=== PATIENT | male | born 1955 | race Caucasian/White ===

== ENCOUNTER 2018-12-30 20:41 | Emergency (ER) | payer MEDICARE, MEDICAID ==
[~2018-12-30] VITALS: Ht 170.2 cm; Wt 90.7 kg
[~2018-12-30 20:41] MED LIST: ASPI-605 PO; ATOR10TA PO; CARV3.122 PO; GABA-534 PO; LISI-607 PO; METF-440 PO; NAPR-1164 PO; PANT40TA4 PO
--- NOTE | 2018-12-30 21:15 | NUR ---
PT BIBSELF FOR S/I, "HEARING VOICES"; PT AAOX4, PT TO BED 6, SI PRECAUTIONS STARTED, ALL BELOGINGS IN UTILITY ROOM, CALLED HOUSE SUP FOR SITTER, VSS, NAD NOTED, PENDING ER PROVIDER HUGO
[2018-12-30 21:32] LABS: BASOPHILS # (AUTO) 0.1 /CMM (0.0-0.2); BASOPHILS % (AUTO) 0.8 % (0.0-2.0); EOSINOPHILS % (AUTO) 0.7 % (0.0-6.0); HEMATOCRIT 36 % (39-51); HEMOGLOBIN 11.8 g/dL (13.5-17.5); LYMPHOCYTES # (AUTO) 1.9 /CMM (0.8-4.8); LYMPHOCYTES % (AUTO) 26.9 % (20.0-44.0); MEAN CORPUSCULAR HGB CONC 33 g/dl (31.0-36.0); MEAN CORPUSCULAR VOLUME 88 fL (80-96); MONOCYTES # (AUTO) 0.5 /CMM (0.1-1.30); MONOCYTES % (AUTO) 7.3 % (2.0-12.0); NEUTROPHILS # (AUTO) 4.6 /CMM (1.8-8.9); NEUTROPHILS % (AUTO) 64.3 % (43.0-81.0); PLATELET COUNT (AUTO) 234 /CMM (150-450); RED BLOOD CELL COUNT(AUTO) 4.04 MIL/uL (4.5-6.0); WHITE BLOOD COUNT (AUTO) 7.1 K/uL (4.3-11.0)
[2018-12-30 21:39] LABS: APPEARANCE,URINE Clear (CLEAR); BILIRUBIN,URINE Negative (NEGATIVE); BLOOD, URINE Negative Ery/uL (NEGATIVE); COLOR,URINE Yellow (YELLOW); KETONES,URINE 15 (NEGATIVE); LEUKOCYTE ESTERASE ,URINE Negative (NEGATIVE); NITRITE, URINE Negative (NEGATIVE); PH,URINE 5.5 (5.0-8.0); PROTEIN,URINE Negative (NEGATIVE); UGLUCOSE Negative (NEGATIVE); UROBILINOGEN,URINE 0.2 EU/dL (0.2)
[2018-12-30 21:41] LABS: CALCIUM, SERUM 9.6 mg/dL (8.5-10.1); CARBON DIOXIDE 30 mmol/L (21-32); CHLORIDE 105 mmol/L (98-107); CREATININE 0.8 mg/dL (0.6-1.3); GLUCOSE 130 mg/dL (74-106); POTASSIUM 4.1 mmol/L (3.5-5.1); SODIUM SERUM 143 mmol/L (136-145); UREA NITROGEN, BLOOD 30 mg/dL (7-18)
[2018-12-30 21:46] LABS: ALANINE AMINOTRANSFERASE 16 U/L (12-78); ALBUMIN 3.7 g/dL (3.4-5.0); ALCOHOL, BLOOD < 3 mg/dL (0-0); ALKALINE PHOSPHATASE 79 U/L (46-116); ASPARTATE AMINOTRANSFERASE 9 U/L (15-37); BILIRUBIN,TOTAL 0.2 mg/dL (0.2-1.0); SALICYLATE 1.4 mg/dL (2.8-20.0); TOTAL PROTEIN, SERUM 7.7 g/dL (6.4-8.2)
[2018-12-30 21:47] LABS: ACETAMINOPHEN 0 ug/ml (10-30)
[2018-12-30 22:02] LABS: BACTERIA,URINE Rare /HPF (None Seen); RBC,URINE 0-2 /HPF (0-2); SQUAMOUS EPITHELIAL CELL,UR Few /HPF (None Seen); WBC,URINE 0-2 /HPF (0-3)
[2018-12-30] MEDS: IV NS 0.9% 1,000 ML BAG IV ONE (22:30)
--- NOTE | 2018-12-30 22:54 | NUR ---
CALLED ART FOR PSYCH EVAL, ETA WITHIN THE HOUR
--- NOTE | 2018-12-31 00:07 | NUR ---
ART AT BEDSIDE
--- NOTE | 2018-12-31 00:25 | NUR ---
REPORT REC'D FROM ORALIA [place] FOR EDDA.
--- NOTE | 2018-12-31 00:52 | NUR ---
PT WAS SEEN BY KELSI MEJIA LCSW. PT DENIES SI AT THIS TIME AND WANTS TO WAIT IN THE LOBBY FOR SOLUTION ADVISOR. KELSI MEJIA LCSW DID THE HOMELESS WAIVER WITH THE PT AND IT WAS SIGNED BY PT. PT REC'D A HOMELESS PACKET. VSS. PT AMBULATED OUT WITH A CANE.
[2018-12-31 01:07] VITALS: BP 126/94
== END 2018-12-31 01:09 | disposition home or self-care (01) ==
LOC: ER 20:41
DX: R45.851 Suicidal ideations (principal); I10 Essential (primary) hypertension; F17.200 Nicotine dependence, unspecified, uncomplicated; Z88.8 Allergy status to other drugs, medicaments and biological substances; Z79.899 Other long term (current) drug therapy; Z79.84 Long term (current) use of oral hypoglycemic drugs; Z79.82 Long term (current) use of aspirin
CPT/HCPCS: 36415; 80048; 80076; 80305; 80307; 80329; 81001; 85025; 99284; G0480; 81000-TC; J7030

== ENCOUNTER 2021-09-11 11:14 | Inpatient (IN) | payer MEDICARE, OTHER ==
[~2021-09-11] VITALS: Ht 167.6 cm; Wt 107.5 kg
[~2021-09-11 11:14] MED LIST changes: -LISI-607 PO; +LISI-768 PO; -PANT40TA4 PO; +PANT40TA49 PO
[2021-09-11] MEDS ORDERED: ALBU8.5H8 IH (11:43)
[2021-09-11] MEDS ORDERED: BUDE10.2 IH (11:43)
[2021-09-11] MEDS ORDERED: TAMS-12 PO (11:43)
[2021-09-11] MEDS ORDERED: QUET50TA PO (11:43)
[2021-09-11] MEDS ORDERED: HALO5TAB PO (11:43)
[2021-09-11] MEDS ORDERED: HYDR-500 PO (11:43)
[2021-09-11] MEDS ORDERED: DIVA-78 PO (11:43)
[2021-09-11] MEDS ORDERED: LORA2VIA11 IM (11:43)
[2021-09-11] MEDS ORDERED: FERR325T23 PO (11:43)
[2021-09-11] MEDS ORDERED: TRAM50TA2 PO (11:43)
[2021-09-11] MEDS ORDERED: DULO30CA2 PO (11:43)
[2021-09-11] MEDS ORDERED: IBUP-1955 PO (11:43)
[2021-09-11] MEDS ORDERED: PSYL3.4P6 PO (11:43)
[2021-09-11] MEDS ORDERED: SITA100T PO (11:43)
[2021-09-11] MEDS ORDERED: ASPI-1169 PO (11:43)
[2021-09-11] MEDS ORDERED: MELA5TAB PO (11:43)
[2021-09-11] MEDS ORDERED: TRAZ-182 PO (11:43)
[2021-09-11] MEDS ORDERED: OLAN10TA3 PO (11:43)
[2021-09-11] MEDS ORDERED: QUET200T PO (11:43)
[2021-09-11 12:00] VITALS: BP 126/64
[2021-09-11] MEDS ORDERED: MAG HYDROX/AL HYDROX/SIMETH 30 ML UDC PO PRN (12:00)
[2021-09-11] MEDS ORDERED: MAGNESIUM HYDROXIDE 30 ML UDC PO PRN (12:00)
--- NOTE | 2021-09-11 12:00 | NUR ---
GPS/RN RECEIVED PT DIRECT ADMIT FROM [facility] ORIGINALLY FROM AND CARE ON 5150 DTO/DTS FACE TO FACE ASSESSMENT NO SI OR HI AT THE TIME OF ADMISSION REPORTED. ADMITTING ORDERS RECEIVED AND CARRIED OUT. PROPERTY CHECKED FOR CONTRABAND. PT IS AMBULATORY BUT REQUESTED WHEEL CHAIR TO MOVE AROUND.
[2021-09-11] MEDS: LORAZEPAM 0.5 MG TABLET PO PRN (13:23)
--- NOTE | 2021-09-11 14:08 | NUR ---
RN-CO: NOTIFIED DR COOPER AND DR MESSER REGARDING THIS NEW ADMIT PATIENT. PT WAS GIVEN PATIENT'S RIGHTS BOOKLET AND DISCUSSED IT TO HIM. HE VERBALIZED UNDERSTANDING. HE WAS ALSO ORIENTED TO THE UNIT RULES AND REGULATIONS. ALL BELONGINGS NO CONTRABAND WAS SCREENED AND LISTED.
[2021-09-11] MEDS ORDERED: ACETAMINOPHEN 325 MG TABLET PO PRN (14:30)
[2021-09-11] MEDS ORDERED: DEXTROSE 50%-WATER 50 ML DISP.SYRIN IV PRN (14:30)
[2021-09-11] MEDS: BUDESONIDE RESPULE INH 0.5 MG/2 ML AMPUL.NEB NEB SCH (15:00)
[2021-09-11] MEDS ORDERED: BUDESONIDE RESPULE INH 0.5 MG/2 ML AMPUL.NEB IH SCH (15:00)
[2021-09-11] MEDS ORDERED: ALBUTEROL FS 2.5 MG/3 ML VIAL.NEB NEB PRN (15:00)
[2021-09-11 16:00] VITALS: BP 144/90
[2021-09-11] MEDS ORDERED: BLOOD SUGAR DIAGNOSTIC 1 EACH STRIP IN ONE (16:30)
[2021-09-11] MEDS ORDERED: Medication Not On Formulary EA (Budesonide/Formoterol Fumarate (Symbicort 160-4.5 Mcg In IH SCH (17:00)
[2021-09-11] MEDS: METFORMIN 500 MG TABLET PO SCH ×3 (17:00→17:57)
[2021-09-11] MEDS: TRAMADOL HCL 50 MG TABLET PO SCH ×3 (17:00→17:57)
[2021-09-11] MEDS: CARVEDILOL 6.25 MG TABLET PO SCH ×3 (17:00→17:58)
[2021-09-11] MEDS: GABAPENTIN 300 MG CAPSULE PO SCH ×3 (17:00→17:57)
[2021-09-11] MEDS: TAMSULOSIN 0.4 MG CAP.SR.24H PO SCH ×3 (17:14→17:57)
[2021-09-11] MEDS: BLOOD SUGAR DIAGNOSTIC 1 EACH STRIP IN SCH ×2 (17:25→21:41)
--- NOTE | 2021-09-11 17:27 | NUR ---
GPS/RN PT REFUSED MEDS OFFERED X3. PT IS RUDE AND BELLIGERENT. PT REFUSED ACCUCHECK WELL. MEDS WERE OFFERED BY QUALITY REP OF THE NOTE AND LUZ RN/MS
[2021-09-11] MEDS ORDERED: DIVALPROEX SODIUM 500 MG TABLET.DR PO SCH (18:00)
[2021-09-11] MEDS ORDERED: Medication Not On Formulary EA (Quetiapine Fumarate (Seroquel) 50 MG) PO SCH (18:00)
[2021-09-11] MEDS ORDERED: DULOXETINE HCL 30 MG CAPSULE.DR PO SCH (18:00)
--- NOTE | 2021-09-11 18:26 | NUR ---
GPS RN NOTE SPOKE WITH ASHTYN FROM PHARMACY WHO STATED PATIENT'S MEDICATION, JANUVIA, WHICH NORMALLY TAKEN AT [facility] ([facility]), IS NOT AVAILABLE AT THE HOSPITAL AND WILL MOST LIKELY BE HELD. WILL ENDORSE TO COLORED LIQUID PLASTIC APPLIER.
[2021-09-11 20:42] VITALS: BP 150/90
[2021-09-11] MEDS: ATORVASTATIN 10 MG TABLET PO SCH (21:35)
[2021-09-11] MEDS: INSULIN REGULAR, HUMAN 100 UNIT/ML 3 ML VIAL SQ PRN (21:41)
[2021-09-11] MEDS: TRAZODONE 50 MG TABLET PO SCH (22:00)
[2021-09-11] MEDS ORDERED: Medication Not On Formulary EA (Melatonin 10 MG) PO SCH (22:00)
[2021-09-12] MEDS: TEMAZEPAM 7.5 MG CAPSULE PO PRN (00:39)
--- NOTE | 2021-09-12 00:40 | NUR ---
Pt c/o insomnia. Least restrictive measures ineffective. Restoril 7.5 mg po prn given as ordered. Will continue to monitor.
--- NOTE | 2021-09-12 01:40 | NUR ---
Post 1 hr Restoril ineffective. Pt still awake and restless. Will continue to monitor.
[2021-09-12] MEDS: LORAZEPAM 0.5 MG TABLET PO PRN ×2 (02:22→12:53)
--- NOTE | 2021-09-12 02:22 | NUR ---
Pt anxious and agitated. Unable to sleep. Least restrictive measures ineffective. Vital signs WNL. Ativan 0.5 mg po prn given as ordered. Will continue to monitor.
--- NOTE | 2021-09-12 03:22 | NUR ---
Post 1 hr Ativan effective. Pt less anxious and agitated but still awake. Will continue to monitor. Frequent visual check done for safety. Will endorse to next shift.
[2021-09-12] MEDS: ALBUTEROL FS 2.5 MG/3 ML VIAL.NEB NEB SCH ×4 (03:58→19:30)
--- NOTE | 2021-09-12 04:00 | NUR ---
Pt asleep easy to arouse. Frequent visual check done for safety. Will endorse to next shift.
[2021-09-12 08:00] VITALS: BP 143/96
[2021-09-12] MEDS: BUDESONIDE RESPULE INH 0.5 MG/2 ML AMPUL.NEB NEB SCH ×2 (08:01→15:10)
[2021-09-12] MEDS: BLOOD SUGAR DIAGNOSTIC 1 EACH STRIP IN SCH ×4 (08:19→21:27)
[2021-09-12] MEDS: GABAPENTIN 300 MG CAPSULE PO SCH ×3 (08:20→17:24)
[2021-09-12] MEDS: METFORMIN 500 MG TABLET PO SCH ×2 (08:21→17:24)
[2021-09-12] MEDS: FERROUS SULFATE (325 MG) 325 MG/TAB TABLET PO SCH (08:21)
[2021-09-12] MEDS: PANTOPRAZOLE 40 MG TABLET.DR PO SCH (08:21)
[2021-09-12] MEDS: ASPIRIN 81 MG TAB.CHEW PO SCH (08:21)
[2021-09-12] MEDS: TRAMADOL HCL 50 MG TABLET PO SCH ×2 (08:21→17:24)
[2021-09-12] MEDS: CARVEDILOL 6.25 MG TABLET PO SCH ×2 (08:22→17:25)
[2021-09-12] MEDS ORDERED: Medication Not On Formulary EA (Sitagliptin Phosphate (Januvia) 100 MG) PO SCH (09:00)
[2021-09-12 11:16] LABS: BASOPHILS % (AUTO) 0.2 % (0.0-2.0); EOSINOPHILS % (AUTO) 1.6 % (0.0-6.0); HEMATOCRIT 38 % (39-51); HEMOGLOBIN 12.5 g/dL (13.5-17.5); LYMPHOCYTES # (AUTO) 1.8 K/uL (0.8-4.8); LYMPHOCYTES % (AUTO) 25.6 % (20.0-44.0); MEAN CORPUSCULAR HGB CONC 33 g/dl (31.0-36.0); MEAN CORPUSCULAR VOLUME 91 fL (80-96); MONOCYTES # (AUTO) 0.7 K/uL (0.1-1.30); MONOCYTES % (AUTO) 10.2 % (2.0-12.0); NEUTROPHILS # (AUTO) 4.3 K/uL (1.8-8.9); NEUTROPHILS % (AUTO) 62.4 % (43.0-81.0); PLATELET COUNT (AUTO) 263 K/uL (150-450); RED BLOOD CELL COUNT(AUTO) 4.19 MIL/uL (4.5-6.0); WHITE BLOOD COUNT (AUTO) 6.9 K/uL (4.3-11.0)
[2021-09-12 11:33] LABS: ALBUMIN 3.7 g/dL (3.4-5.0); BILIRUBIN,TOTAL 0.2 mg/dL (0.2-1.0); CALCIUM, SERUM 9.4 mg/dL (8.5-10.1); CREATININE 0.8 mg/dL (0.6-1.3); MAGNESIUM 1.9 mg/dL (1.8-2.4); PHOSPHORUS 4.2 mg/dL (2.5-4.9); POTASSIUM 4.3 mmol/L (3.5-5.1); TOTAL PROTEIN, SERUM 7.4 g/dL (6.4-8.2)
[2021-09-12] MEDS: ACETAMINOPHEN 325 MG TABLET PO PRN (12:18)
[2021-09-12] MEDS: HALOPERIDOL 5 MG TABLET PO SCH ×2 (13:25→17:24)
[2021-09-12] MEDS: DIVALPROEX SODIUM 500 MG TABLET.DR PO SCH ×2 (13:25→21:16)
[2021-09-12] MEDS ORDERED: HALOPERIDOL LACTATE INJ 5 MG/ML VIAL IM STA (13:47)
[2021-09-12] MEDS ORDERED: BENZTROPINE MESYLATE (2MG/2ML) 2 MG/2 ML AMPUL IM STA (13:47)
[2021-09-12] MEDS ORDERED: LORAZEPAM INJ 2 MG/ML VIAL IM STA (13:47)
--- NOTE | 2021-09-12 14:24 | NUR ---
GPS RN NOTES PATIENT WALKING AGITATED, SAID WANT TO BANG HIS HEAD ON THE WALL. REQUESTING VOLUNTARILY IM INJECTION. MD CONTACTED BY CHARGE NURSE AND ORDER RECEIVED AND CARRIED OUT.
--- NOTE | 2021-09-12 15:12 | NUR ---
Conservator: The pt. stated that he has a conservator through public guardian's office,Marcelina Mcgarry [phone]. SW called and left a voicemail to establish communication and discuss DC planning. SW will follow up as needed.
--- NOTE | 2021-09-12 15:12 | NUR ---
Initial Discharge plan: The pt. comes from [facility] [[address] [facility] [address]; ]. NICO called Marcelina and left a voicemail to establish communication and discuss DC planning. NICO will follow up as needed. NICO will collaborate with pt., conservator & psychiatrist to ensure a safe & proper discharge planning. Addendum: 09/12/21 at 1517 by SALBADOR WALSH Pt. stated he is willing to return to [facility] [[address] [facility] [address]; ] if no alternate placement is found. NICO called [facility] admission's dept. and left message if pt. is able to return once stable. NICO will follow up.
--- NOTE | 2021-09-12 15:17 | NUR ---
SW Admit Source: The pt. is a 66 year old male on a 5150 hold for DTS/DTO. The pt. comes from [facility] [[address] [place] [address]; ] after making suicidal statements and wanting to hurt staff at the facility, per hold. Per hold, pt. stated he has a plan to kill himself at facility by cutting his wrists with glass. Pt. is open to returning to [facility] or alternate placement. SW will establish communication with Conservator & plan a safe discharge.
[2021-09-12 16:00] VITALS: BP 128/87
[2021-09-12] MEDS: TAMSULOSIN 0.4 MG CAP.SR.24H PO SCH (18:51)
--- NOTE | 2021-09-12 19:26 | NUR ---
GPS RN NOTES PT RECEIVED IN MED ASLEEP EASILY WOKEN UP. PT WITH NO RESPIRATORY DISTRESS NOTED. NO PAIN REPORTED OR NOT4ED AT THIS TIME. A/O X3 ANXIOUS. ALL DUE MEDS WILL ME ADMINISTERED ORDERED. PT WILL BE MONITORED WITH HELP OF NURSING STAFF.
[2021-09-12 20:00] VITALS: BP 134/73
[2021-09-12] MEDS: ATORVASTATIN 10 MG TABLET PO SCH (21:16)
[2021-09-12] MEDS: INSULIN REGULAR, HUMAN 100 UNIT/ML 3 ML VIAL SQ PRN (21:28)
[2021-09-12] MEDS: TRAZODONE 50 MG TABLET PO SCH (22:01)
[2021-09-13] MEDS: ALBUTEROL FS 2.5 MG/3 ML VIAL.NEB NEB SCH ×4 (01:30→19:30)
[2021-09-13] MEDS: ACETAMINOPHEN 325 MG TABLET PO PRN (01:53)
--- NOTE | 2021-09-13 02:00 | NUR ---
GPS RN NOTES PRN TYLENOL GIVEN FOR MILD PAIN TOLERATED WELL. WILL CONTINUE TO MONITOR.
[2021-09-13] MEDS: LORAZEPAM 0.5 MG TABLET PO PRN (03:34)
--- NOTE | 2021-09-13 03:38 | NUR ---
GPS RN NOTES PRN ATIVAN GIVEN FOR ANXIETY PT PASSING BACK AN FORTH SAYING HE IS VERY ANXIOUS. TOLERATED WELL. WILL CONTINUE TO MONITOR.
[2021-09-13] MEDS: BUDESONIDE RESPULE INH 0.5 MG/2 ML AMPUL.NEB NEB SCH ×2 (07:05→14:18)
[2021-09-13 08:00] VITALS: BP 106/64
[2021-09-13] MEDS: BLOOD SUGAR DIAGNOSTIC 1 EACH STRIP IN SCH ×4 (08:08→21:24)
[2021-09-13] MEDS: ASPIRIN 81 MG TAB.CHEW PO SCH (08:09)
[2021-09-13] MEDS: HALOPERIDOL 5 MG TABLET PO SCH ×3 (08:09→17:16)
[2021-09-13] MEDS: PANTOPRAZOLE 40 MG TABLET.DR PO SCH (08:09)
[2021-09-13] MEDS: DIVALPROEX SODIUM 500 MG TABLET.DR PO SCH ×2 (08:09→21:21)
[2021-09-13] MEDS: METFORMIN 500 MG TABLET PO SCH ×2 (08:10→17:16)
[2021-09-13] MEDS: TRAMADOL HCL 50 MG TABLET PO SCH ×2 (08:10→17:17)
[2021-09-13] MEDS: GABAPENTIN 300 MG CAPSULE PO SCH ×3 (08:10→17:15)
[2021-09-13] MEDS: CARVEDILOL 6.25 MG TABLET PO SCH ×2 (08:10→17:15)
[2021-09-13] MEDS: FERROUS SULFATE (325 MG) 325 MG/TAB TABLET PO SCH (08:10)
--- NOTE | 2021-09-13 08:55 | NUR ---
Conservator: NICO contacted public guardian's office,Marcelina Mcgarry [phone]. NICO called and left a voicemail to establish communication and discuss DC planning. NICO was transferred to officer of the paras Myles who stated that Marcelina will be back in the office 09/14. She stated that pt is LPS conserved.
--- NOTE | 2021-09-13 09:10 | NUR ---
Conservator: NICO contacted public guardian's office,Marcelina Moralesiz [phone]. NICO spoke with officer of the paras Myles who sent the conservatorship documents. SW placed in the chart.
[2021-09-13] MEDS ORDERED: HALOPERIDOL LACTATE INJ 5 MG/ML VIAL IM STA (13:42)
[2021-09-13] MEDS ORDERED: LORAZEPAM INJ 2 MG/ML VIAL IM STA (13:42)
[2021-09-13] MEDS ORDERED: BENZTROPINE MESYLATE (2MG/2ML) 2 MG/2 ML AMPUL IM STA (13:42)
--- NOTE | 2021-09-13 13:56 | NUR ---
GPS RN NOTE: PATIENT ANXIOUS EXTREMELY AGITATED ANGRY MOOD ATIVAN OFFERED BUT PATIENT REFUSED PO ATIVAN 0.5 MG PRN PO,INSTEAD PATIENT REQUEST IM MEDICATIONS DR COOPER WAS NOTIFIED WITH ORDERS. ATIVAN 0.5 MG PO PRN I TAB WAS WAISTED WITH MARIE MADRIGAL WITNESS. PHARMACY NOTIFIED.
--- NOTE | 2021-09-13 14:02 | NUR ---
Patient agitated and he wants to bang his head to the wall , notified with new order Ativan 2mg IM ,Haldol 5mg IM,Cogentin 1mg IM .Patient voluntarily accept injection ,no physical hold ,
[2021-09-13 16:00] VITALS: BP 117/76
[2021-09-13] MEDS ORDERED: HALOPERIDOL 1 MG TABLET PO SCH (17:00)
[2021-09-13] MEDS: TAMSULOSIN 0.4 MG CAP.SR.24H PO SCH (17:14)
[2021-09-13 20:00] VITALS: BP 123/84
[2021-09-13] MEDS: ATORVASTATIN 10 MG TABLET PO SCH (21:23)
[2021-09-13] MEDS ORDERED: QUETIAPINE FUMARATE 25 MG TABLET PO SCH (22:00)
[2021-09-13] MEDS ORDERED: TRAZODONE 50 MG TABLET PO SCH (22:00)
[2021-09-14] MEDS: ALBUTEROL FS 2.5 MG/3 ML VIAL.NEB NEB SCH ×4 (01:30→19:30)
[2021-09-14] MEDS: TEMAZEPAM 7.5 MG CAPSULE PO PRN ×2 (01:51→21:40)
--- NOTE | 2021-09-14 02:34 | NUR ---
GPS RN NOTES PATIENT RESTLESS DESPITE ROUTINE AND PRN MEDS; PATIENT COMPLIANT WITH MEDICATION REGIME; PATIENT FRUSTRATED AND CANNOT SLEEP, TRIES TO GET OUT OF BED CONSTANTLY TO USE RESTROOM; HITTING HIMSELF IN THE HEAD WITH HIS HANDS WHILE LAYING IN BED; CHANGING PATIENT LINEN DUE TO PATIENT PEEING IN BED; PATIENT OFFERED URINAL PRIOR TO INCIDENT BUT REFUSING TO USE URINAL AND ADAMANT ON USING RESTROOM; PER PREVIOUS SHIFT, PATIENT HAS MANIPULATIVE AND ATTENTION SEEKING BEHAVIOR; PATIENT HAS WALKED TO RESTROOM MORE THAN 5X WITHIN THE HOUR; BOUNDARIES SET, PATIENT RE-DIRECTED AND RE-EDUCATED ON COMPLIANCE WITH TREATMENT PLAN TO PREVENT POSSIBLE FALL; PATIENT NEEDY AND DEMANDING THROUGHOUT SHIFT; CHARGE NURSE AWARE AND AGREED TO FOR PATIENT TO HAVE DIAPER ON TO PREVENT PATIENT FALL; PATIENT IS FALL RISK; BED ALARM ON; WILL CONT TO MONITOR
--- NOTE | 2021-09-14 05:14 | NUR ---
GPS RN NOTES PATIENT YELLING AND CURSING AT STAFF, PATIENT CONSTANTLY ATTEMPTING TO GET OUT OF BED; PATIENT REMOVING GOWN THROUGHOUT SHIFT; PATIENT DOES NOT WANT TO LISTEN TO DIRECTION; PATIENT CONFUSED, CRYING IN BED, STATED, "HE COULD NOT HANDLE THIS AND WOULD LIKE TO LAY DOWN IN BED", CHARGE NURSE AWARE OF SITUATION; SAFETY PRECAUTIONS IMPLEMENTED, SIDE RAILS X2 UP, BED LOCKED IN LOW POSITION; BED ALARM ON; WILL CONT TO MONITOR
[2021-09-14] MEDS: BUDESONIDE RESPULE INH 0.5 MG/2 ML AMPUL.NEB NEB SCH ×2 (07:05→15:00)
[2021-09-14 08:00] VITALS: BP 125/80
[2021-09-14] MEDS: PANTOPRAZOLE 40 MG TABLET.DR PO SCH (08:08)
[2021-09-14] MEDS: BLOOD SUGAR DIAGNOSTIC 1 EACH STRIP IN SCH ×4 (08:09→21:45)
[2021-09-14] MEDS: DIVALPROEX SODIUM 500 MG TABLET.DR PO SCH ×2 (08:33→21:39)
[2021-09-14] MEDS: HALOPERIDOL 5 MG TABLET PO SCH ×3 (08:33→16:14)
[2021-09-14] MEDS: METFORMIN 500 MG TABLET PO SCH ×2 (08:46→16:18)
[2021-09-14] MEDS: FERROUS SULFATE (325 MG) 325 MG/TAB TABLET PO SCH (08:46)
[2021-09-14] MEDS: GABAPENTIN 300 MG CAPSULE PO SCH ×3 (08:46→16:14)
[2021-09-14] MEDS: TRAMADOL HCL 50 MG TABLET PO SCH ×2 (08:47→16:15)
[2021-09-14] MEDS: ASPIRIN 81 MG TAB.CHEW PO SCH (08:47)
[2021-09-14] MEDS: CARVEDILOL 6.25 MG TABLET PO SCH ×2 (08:48→16:15)
--- NOTE | 2021-09-14 10:47 | NUR ---
Conservator: NICO contacted public guardian's office,Marcelina Moralesiz [phone] and was unavailable. NICO spoke with Jairo officer of the day who stated that [facility] no longer does Detain and Treat and that his has been a new law since [facility]. He stated if the pt is refusing medications then they would petition for court. He reported that pt is at [facility] ([phone]) and stated that if pt needs placement Isai Moore ([phone]) will help with placement.
--- NOTE | 2021-09-14 11:00 | NUR ---
SNF Contact: SW contacted [facility] ([phone]) and spoke with Ganesh who stated that pt is not welcomed back to the facility.
--- NOTE | 2021-09-14 14:05 | NUR ---
PUBLIC GUARDIAN OFFICE: NIOC SPOKE WITH MARK DIAZ ([phone]) (F: [phone]) TO HELP WITH PLACEMENT. NICO FAXED HIM PT'S CLINICALS.
[2021-09-14 16:00] VITALS: BP 133/88
[2021-09-14] MEDS: TAMSULOSIN 0.4 MG CAP.SR.24H PO SCH (17:08)
[2021-09-14] MEDS: INSULIN REGULAR, HUMAN 100 UNIT/ML 3 ML VIAL SQ PRN (17:11)
[2021-09-14 20:00] VITALS: BP 105/59
--- NOTE | 2021-09-14 20:11 | NUR ---
RT PT REFUSED BREATHING TX, NO SIGNS OF SOB OR RESPIRATORY DISTRESS AT THIS TIME. RUBÉN FAGAN MADE AWARE.
[2021-09-14] MEDS: ATORVASTATIN 10 MG TABLET PO SCH (21:39)
[2021-09-14] MEDS: QUETIAPINE FUMARATE 25 MG TABLET PO PRN ×2 (21:40→22:01)
[2021-09-14] MEDS: ACETAMINOPHEN 325 MG TABLET PO PRN (21:41)
--- NOTE | 2021-09-14 22:00 | NUR ---
accidently took out 50 mg 2 tablet of 25 mg of seroquel then noted that this was a PRN order and I needed to give the HS dose of 100mg , threw out the open pills and retrieved the 100 mg that I needed for his routine order to be given My witness is AURELIANO Jordan from [facility]
[2021-09-14] MEDS: QUETIAPINE FUMARATE 100 MG TABLET PO SCH (22:11)
[2021-09-15] MEDS: QUETIAPINE FUMARATE 25 MG TABLET PO PRN ×5 (00:32→00:46)
[2021-09-15] MEDS: ALBUTEROL FS 2.5 MG/3 ML VIAL.NEB NEB SCH ×4 (01:30→20:58)
--- NOTE | 2021-09-15 02:00 | NUR ---
patent awake pass 2 hours up and down of the bed ambulates to the bathroom unsteady on his legs. Voided on the floor. attemped to get him warm and to stay in be and go to sleep ( had restoril at 2200) unsuccessful. sitting on the edge of the bed and yells out Nurse help me. When asked how I could help him he stated he is having an axiety attack/ Placed in a India chair attempted to sit with patien and talk but he yells profanity, and continues to say I don't want to sit in this chair. Ativan given as ordered for anxiety.
[2021-09-15] MEDS: LORAZEPAM 0.5 MG TABLET PO PRN ×2 (02:02→08:24)
[2021-09-15] MEDS: ACETAMINOPHEN 325 MG TABLET PO PRN (02:16)
--- NOTE | 2021-09-15 02:37 | NUR ---
Sitting in the Hiral chair.I sat with patient allowing hiim to talk. He states he has sciatica and can't sit in the chair long. He is still yelling out and swearing and pounding the tray of the chair. Will sit with him and allow him to talk and possibly calm down , and then place him back in bed
[2021-09-15] MEDS: IBUPROFEN 600 MG TABLET PO PRN (02:50)
--- NOTE | 2021-09-15 04:06 | NUR ---
Patient in wayne chair quiet for a time then sits up and begins to use his hands a pound on the tray call the staff foul words and bad names . When attempt to talk to him unable to carry on a conversation. He is yelling and talking loudly and verbally abusive to staff. Motrin given for leg pain. Will monitor him closely
--- NOTE | 2021-09-15 04:24 | NUR ---
Back in his room placed in bed walked from the door to the bed unsteady gait [address] him in bed . plan is to check freq on him, nurse sitting next tot the room. Instructed his room mate to turn off the light
--- NOTE | 2021-09-15 04:31 | NUR ---
after being placed back into bed , within moments he was getting OOB. he is unsteady on his legs, for safety placed in the chair covers and pillow given, will monitor closely.
[2021-09-15 08:00] VITALS: BP 153/94
[2021-09-15] MEDS: BLOOD SUGAR DIAGNOSTIC 1 EACH STRIP IN SCH ×4 (08:01→22:21)
[2021-09-15] MEDS: INSULIN REGULAR, HUMAN 100 UNIT/ML 3 ML VIAL SQ PRN ×3 (08:02→17:09)
[2021-09-15] MEDS: BUDESONIDE RESPULE INH 0.5 MG/2 ML AMPUL.NEB NEB SCH ×2 (08:03→14:59)
[2021-09-15] MEDS: PANTOPRAZOLE 40 MG TABLET.DR PO SCH (08:21)
[2021-09-15] MEDS: DIVALPROEX SODIUM 500 MG TABLET.DR PO SCH ×2 (08:23→21:34)
[2021-09-15] MEDS: METFORMIN 500 MG TABLET PO SCH ×2 (08:23→16:22)
[2021-09-15] MEDS: ASPIRIN 81 MG TAB.CHEW PO SCH (08:24)
[2021-09-15] MEDS: GABAPENTIN 300 MG CAPSULE PO SCH ×3 (08:24→16:22)
[2021-09-15] MEDS: HALOPERIDOL 5 MG TABLET PO SCH ×3 (08:24→16:22)
[2021-09-15] MEDS: TRAMADOL HCL 50 MG TABLET PO SCH ×2 (08:24→16:23)
[2021-09-15] MEDS: FERROUS SULFATE (325 MG) 325 MG/TAB TABLET PO SCH (08:24)
[2021-09-15] MEDS: CARVEDILOL 6.25 MG TABLET PO SCH ×2 (08:27→16:31)
--- NOTE | 2021-09-15 10:37 | NUR ---
Conservator: SW contacted public guardian's office,Marcelina Mcgarry [phone] and left a voicemail at 10:37AM in regards to pt not being able to return back to [facility] and requested to contact this keno writer / runner to discuss.
--- NOTE | 2021-09-15 13:58 | NUR ---
SNF Referral: NICO sent clinicals to Imelda damian ([phone]) for placement options. NICO sent H & P notes, medication list, and progress notes.
--- NOTE | 2021-09-15 14:00 | NUR ---
Conservator: NICO contacted public guardian's office, spoke with Isai [phone] who stated that he discussed with Marcelina's physical therapy supervisor that this check writer salesperson can find a nursing facility in the [place] location. He did mention we just need the conservator to state "yes" which he believes that Marcelina will. NICO will follow up.
[2021-09-15 16:00] VITALS: BP 117/77
[2021-09-15] MEDS: TAMSULOSIN 0.4 MG CAP.SR.24H PO SCH (17:41)
[2021-09-15 20:00] VITALS: BP 97/48
[2021-09-15] MEDS: ATORVASTATIN 10 MG TABLET PO SCH (21:34)
[2021-09-15] MEDS: QUETIAPINE FUMARATE 100 MG TABLET PO SCH (21:34)
[2021-09-16] MEDS: ALBUTEROL FS 2.5 MG/3 ML VIAL.NEB NEB SCH ×4 (01:30→20:51)
--- NOTE | 2021-09-16 06:41 | NUR ---
GPS RN CLOSING NOTES: PATIENT IS CURRENTLY IN BED AWAKE. PATIENT SLEPT 3HR THIS SHIFT. NO S/S OF DISTRESS. RESPIRATION EVEN AND UNLABORED WITH EQUAL RISE AND FALL OF THE CHEST, ON ROOM AIR. ALL PATIENT CARE NEEDS HAVE BEEN MET AT THIS TIME. WILL CONTINUE TO MONITOR AND ENDORSE TO AM SHIFT.
[2021-09-16] MEDS: BUDESONIDE RESPULE INH 0.5 MG/2 ML AMPUL.NEB NEB SCH ×2 (07:05→15:00)
[2021-09-16 08:00] VITALS: BP 129/76
[2021-09-16] MEDS: HALOPERIDOL 5 MG TABLET PO SCH ×3 (08:31→16:40)
[2021-09-16] MEDS: PANTOPRAZOLE 40 MG TABLET.DR PO SCH (08:31)
[2021-09-16] MEDS: ASPIRIN 81 MG TAB.CHEW PO SCH (08:31)
[2021-09-16] MEDS: FERROUS SULFATE (325 MG) 325 MG/TAB TABLET PO SCH (08:31)
[2021-09-16] MEDS: METFORMIN 500 MG TABLET PO SCH ×2 (08:31→16:40)
[2021-09-16] MEDS: CARVEDILOL 6.25 MG TABLET PO SCH ×2 (08:31→16:41)
[2021-09-16] MEDS: GABAPENTIN 300 MG CAPSULE PO SCH ×3 (08:32→16:39)
[2021-09-16] MEDS: DIVALPROEX SODIUM 500 MG TABLET.DR PO SCH ×2 (08:32→21:25)
[2021-09-16] MEDS: TRAMADOL HCL 50 MG TABLET PO SCH ×2 (08:33→16:42)
[2021-09-16] MEDS: BLOOD SUGAR DIAGNOSTIC 1 EACH STRIP IN SCH ×4 (08:33→22:34)
--- NOTE | 2021-09-16 09:54 | NUR ---
Conservator: NICO contacted public guardian's office, priya Hewitt's conservator [phone]. NICO left a voicemail at 10AM that pt is accepted at [facility].
--- NOTE | 2021-09-16 10:02 | NUR ---
SNF Referral: SW spoke with Imelda damian ([phone]) and stated pt is accepted at [facility].
--- NOTE | 2021-09-16 10:05 | NUR ---
Conservator: NICO contacted public guardian's office, spoke with Isai [phone] and notified that pt is accepted at [facility] and stated the conservator Marcelina has not been answering any phone calls. NICO requested how the hospital should proceed with this.
--- NOTE | 2021-09-16 10:34 | NUR ---
NICO PC HEARING: NICO contacted pt's conservator Marcelina [phone], and left a voicemail of pt's 2327 hearing is today.
--- NOTE | 2021-09-16 11:30 | NUR ---
NICO Individual Therapy: SW attempted to conduct individual therapy. Pt appeared with labile mood and stated that he does not want therapy at this time.
--- NOTE | 2021-09-16 11:44 | NUR ---
RN-NOTES PATIENT BS WAS 144MG/DL, REFUSED 2 UNITS R INSULIN COVERAGE. EXPLAINED RISK AND BENEFITS BUT PATIENT STILL REFUSED.OFFERED X3
--- NOTE | 2021-09-16 13:50 | NUR ---
Court Hearing: Patient's court hearing for 3710 was today and it was upheld for GD.
--- NOTE | 2021-09-16 15:19 | NUR ---
Conservator: NICO contacted public guardian's office, left a voicemail to Felipa who is Marcelina's service center supervisor [phone]. NICO left a voicemail stating that Marcelina ochoa is irresponsible and has not responded to this typewriter mechanic since September 12 and stating that this typewriter mechanic has left her multiple voicemails. NICO requested for a call back.
[2021-09-16 16:00] VITALS: BP 137/91
--- NOTE | 2021-09-16 17:10 | NUR ---
RN-NOTES PATIENT BS WAS 165 MG/DL, REFUSED 3 UNITS R INSULIN COVERAGE,STATED " I DON'T NEED INSULIN,IT'S NOT THAT HIGH".EXPLAINED RISK AND BENEFITS BUT PATIENT STILL REFUSED.OFFERED X3
[2021-09-16] MEDS: TAMSULOSIN 0.4 MG CAP.SR.24H PO SCH (17:14)
--- NOTE | 2021-09-16 17:56 | NUR ---
RN-NOTES NOTED REDNESS ON PATIENT ABDOMINAL FOLD AND BILATERAL GROIN. ENCOURAGED TO HAVE SHOWER BUT PATIENT WAS RESISTIVE AT FIRST. EXPLAINED RISK AND BENEFITS OF GOOD HYGIENE AND TO PREVENT FROM FURTHER INFECTIONS. PATIENT DID AGREED TO HAVE SHOWER. WOUND CONSULT ORDERED. WILL ENDORSE TO INCOMING SHIFT FOR CONTINUITY OF CARE.
--- NOTE | 2021-09-16 19:00 | NUR ---
RN-NOTES NOTED PATIENT PURPOSELY LYING AND SITTING ON THE FLOOR. PATIENT WAS ATTENTION SEEKER AND NEEDY. PATIENT ABLE TO STAND AND SIT ON THE WHEEL CHAIR WITHOUT ASSISTANCE . PATIENT IS WHEELING SELF AROUND THE UNIT WITHOUT ANY TROUBLE. ALL NEEDS ATTENDED AND ANTICIPATED. WILL ENDORSE TO INCOMING SHIFT FOR CONTINUITY OF CARE.
[2021-09-16 20:33] VITALS: BP 115/77
[2021-09-16] MEDS: ATORVASTATIN 10 MG TABLET PO SCH (21:26)
[2021-09-16] MEDS: QUETIAPINE FUMARATE 100 MG TABLET PO SCH (21:26)
[2021-09-16] MEDS: TEMAZEPAM 7.5 MG CAPSULE PO PRN (22:21)
--- NOTE | 2021-09-16 22:21 | NUR ---
GPS RN NOTES: RESTORIL 7.5MG GIVEN PO FOR SLEEP AT 2. WILL CONTINUE TO MONITOR.
[2021-09-16] MEDS: ACETAMINOPHEN 325 MG TABLET PO PRN (22:23)
--- NOTE | 2021-09-16 22:24 | NUR ---
GPS RN NOTES: PATIENT C/O BLE PAIN. TYLENOL 650MG GIVEN PO AT 2223. WILL CONTINUE TO MONITOR.
[2021-09-17] MEDS: ALBUTEROL FS 2.5 MG/3 ML VIAL.NEB NEB SCH ×5 (02:17→19:30)
[2021-09-17] MEDS: BUDESONIDE RESPULE INH 0.5 MG/2 ML AMPUL.NEB NEB SCH ×2 (07:05→15:00)
--- NOTE | 2021-09-17 07:38 | NUR ---
RT PT REFUSED TX, DAYSHIFT RN INFORMED.
[2021-09-17] MEDS: BLOOD SUGAR DIAGNOSTIC 1 EACH STRIP IN SCH ×4 (07:40→22:00)
[2021-09-17] MEDS: PANTOPRAZOLE 40 MG TABLET.DR PO SCH (07:57)
[2021-09-17] MEDS: DIVALPROEX SODIUM 500 MG TABLET.DR PO SCH ×2 (07:59→21:01)
[2021-09-17 08:00] VITALS: BP 121/76
[2021-09-17] MEDS: HALOPERIDOL 5 MG TABLET PO SCH ×3 (08:00→16:48)
[2021-09-17] MEDS: FERROUS SULFATE (325 MG) 325 MG/TAB TABLET PO SCH (08:01)
[2021-09-17] MEDS: METFORMIN 500 MG TABLET PO SCH ×2 (08:01→16:49)
[2021-09-17] MEDS: GABAPENTIN 300 MG CAPSULE PO SCH ×3 (08:01→16:48)
[2021-09-17] MEDS: ASPIRIN 81 MG TAB.CHEW PO SCH (08:01)
[2021-09-17] MEDS: TRAMADOL HCL 50 MG TABLET PO SCH ×2 (08:01→16:49)
[2021-09-17] MEDS: CARVEDILOL 6.25 MG TABLET PO SCH ×2 (08:02→16:50)
[2021-09-17] MEDS: LORAZEPAM 0.5 MG TABLET PO PRN ×2 (08:26→20:58)
--- NOTE | 2021-09-17 08:30 | NUR ---
RN-NOTES NOTED PATIENT VERY ANXIOUS UNABLE TO SIT STILL ,WHEELING SELF AROUND THE UNIT WITH EPISODE OF LYING ON THE FLOOR PURPOSELY. REDIRECTED AND ATIVAN 0.5MG P.O GIVEN PRN ORDER. WILL CONT. MONITORING FOR SAFETY AND BEHAVIOR.
--- NOTE | 2021-09-17 09:24 | NUR ---
RN-NOTES NOTED PATIENT VERY ANXIOUS UNABLE TO SIT STILL ,PURPOSELY LYING ON THE FLOOR SEVERAL TIMES, SCREAMING AND YELLING NOT FOLLOWING DIRECTIONS. PATIENT WANTS TO HAVE IM MEDICATION. DR. CHRISTIE COVERING TODAY WITH T.O OF ATIVAN 2MG IM ONCE, HALDOL 5MG IM ONCE AND BENADRYL 25MG IM ONCE. NOTED AND CARRIED OUT.
[2021-09-17] MEDS ORDERED: LORAZEPAM INJ 2 MG/ML VIAL IM ONE (09:30)
[2021-09-17] MEDS ORDERED: diphenhydrAMINE HCL 50 MG/ML VIAL IM ONE (09:30)
[2021-09-17] MEDS ORDERED: HALOPERIDOL LACTATE INJ 5 MG/ML VIAL IM ONE (09:30)
[2021-09-17] MEDS: Z GUARD REMEDY 4 OZ OINT TP SCH ×2 (09:38→16:53)
--- NOTE | 2021-09-17 11:00 | NUR ---
RN-NOTES PATIENT UP IN THE AVA CHAIR STILL NOTED WITH YELLING AND GETTING UP UNASSISTED BEHAVIOR. NO ACUTE DISTRESS NOTED. NEEDS FREQUENT REDIRECTIONS. ALL NEEDS ATTENDED AND ANTICIPATED. WILL CONT. MONITORING FOR SAFETY AND BEHAVIOR.
--- NOTE | 2021-09-17 14:27 | NUR ---
RT PT SITTING IN AVA CHAIR, PT REFUSED DIANE TX. NURSE INFORMED.
--- NOTE | 2021-09-17 15:13 | NUR ---
RN-NOTES PATIENT CONT. REFUSING BREATHING TX.
[2021-09-17 16:00] VITALS: BP 113/77
[2021-09-17] MEDS: TAMSULOSIN 0.4 MG CAP.SR.24H PO SCH (17:38)
[2021-09-17 19:50] VITALS: BP 130/70
--- NOTE | 2021-09-17 21:01 | NUR ---
GPS RN NOTES: PATIENT IS AGITATED, YEELING, CURSING, BANGING, REFUSING REDIRECTION. ATIVAN 0.5MG GIVEN PO AT 2057. WILL CONTINUE TO MONITOR.
[2021-09-17] MEDS: ATORVASTATIN 10 MG TABLET PO SCH (21:43)
[2021-09-17] MEDS: QUETIAPINE FUMARATE 100 MG TABLET PO SCH (21:43)
[2021-09-17] MEDS: TEMAZEPAM 7.5 MG CAPSULE PO PRN (22:23)
[2021-09-17] MEDS: ACETAMINOPHEN 325 MG TABLET PO PRN (22:25)
--- NOTE | 2021-09-17 22:35 | NUR ---
GPS RN NOTES: TEMAZEPAM 7.5MG GIVEN PO AT 2223 FOR SLEEP. WILL CONTINUE TO MONITOR.
--- NOTE | 2021-09-17 22:37 | NUR ---
GPS RN NOTES: PATIENT REFUSED 2200 ACCU CHEK. WILL CONTINUE TO MONITOR.
--- NOTE | 2021-09-17 22:37 | NUR ---
GPS RN NOTES: PATIENT C/O GENERALIZED BODY PAIN. TYLENOL 650MG GIVEN PO AT 2225. WILL CONTINUE TO MONITOR.
[2021-09-18] MEDS: ALBUTEROL FS 2.5 MG/3 ML VIAL.NEB NEB SCH ×4 (01:30→19:30)
[2021-09-18] MEDS: IBUPROFEN 600 MG TABLET PO PRN (05:47)
[2021-09-18] MEDS: ACETAMINOPHEN 325 MG TABLET PO PRN (05:50)
--- NOTE | 2021-09-18 05:57 | NUR ---
GPS RN NOTES: PATIENT C/O BACK PAIN. IBUPROFEN 600MG GIVEN PO AT 0547. WILL CONTINUE TO MONITOR.
--- NOTE | 2021-09-18 05:57 | NUR ---
GPS RN NOTES: PATIENT C/O BACK PAIN. TYLENOL 650MG GIVEN PO AT 0550. WILL CONTINUE TO MONITOR.
[2021-09-18] MEDS: LORAZEPAM 0.5 MG TABLET PO PRN (05:58)
--- NOTE | 2021-09-18 05:59 | NUR ---
GPS RN NOTES: PATIENT IS RESTLESS, ANXIOUS, YELLING, BANGING, REFUSING REDIRECTION. ATIVAN 0.5MG GIVEN PO AT 0558. WILL CONTINUE TO MONITOR.
[2021-09-18] MEDS: BUDESONIDE RESPULE INH 0.5 MG/2 ML AMPUL.NEB NEB SCH ×2 (07:05→14:05)
[2021-09-18] MEDS: BLOOD SUGAR DIAGNOSTIC 1 EACH STRIP IN SCH ×4 (07:30→21:49)
[2021-09-18 08:00] VITALS: BP 130/79
[2021-09-18] MEDS: PANTOPRAZOLE 40 MG TABLET.DR PO SCH (08:16)
[2021-09-18] MEDS: CARVEDILOL 6.25 MG TABLET PO SCH ×2 (08:22→16:59)
[2021-09-18] MEDS: HALOPERIDOL 5 MG TABLET PO SCH ×3 (08:22→16:57)
[2021-09-18] MEDS: DIVALPROEX SODIUM 500 MG TABLET.DR PO SCH ×2 (08:22→21:40)
[2021-09-18] MEDS: METFORMIN 500 MG TABLET PO SCH ×2 (08:22→16:57)
[2021-09-18] MEDS: FERROUS SULFATE (325 MG) 325 MG/TAB TABLET PO SCH (08:23)
[2021-09-18] MEDS: TRAMADOL HCL 50 MG TABLET PO SCH ×2 (08:23→16:57)
[2021-09-18] MEDS: GABAPENTIN 300 MG CAPSULE PO SCH ×3 (08:23→16:57)
[2021-09-18] MEDS: ASPIRIN 81 MG TAB.CHEW PO SCH (08:23)
[2021-09-18] MEDS: Z GUARD REMEDY 4 OZ OINT TP SCH ×2 (09:05→17:11)
--- NOTE | 2021-09-18 09:21 | NUR ---
RN-CO: RECEIVED PT AWAKE, YELLING AND SCREAMING. HE IS VERBALLY ABUSIVE, " YOU ARE ALL BITCHES!" AGITATED, POOR BOUNDERIES AND ENTITLED. HE NEEDS CONSTANT REDIRECTION. HOWEVER HE IS UNCOOPERATIVE AND ARGUMENTATIVE.
--- NOTE | 2021-09-18 09:40 | NUR ---
RN-CO: PT REMAINS AGITATED AND SCREAMING AND YELLING . HE GOT AGITATED IF YOU DON'T GIVE WHAT HE WANTS RIGHT AWAY. HE IS THROWING HIMSELF ON THE FLOOR TO GET ATTENTION. UNABLE TO REDIRECT. HE DISRUPT THE UNIT PAGED DR CHRISTIE TO GET AN ORDER.
--- NOTE | 2021-09-18 09:45 | NUR ---
RN-CO: PT IS YELLING "GIVE ME A SHOT SO I WILL BE CALM!"
--- NOTE | 2021-09-18 09:58 | NUR ---
RN-CO: DR CHRISTIE CALLED BACK AND ORDERED HALDOL 5 MG IM , ATIVAN 2 MG IM, BENADRYL 25 MG IM ONCE., NOTED AND CARRIED OUT. Addendum: 09/18/21 at 1017 by STACIA AUSTIN RN RN-CO: ATIVAN IS 1 MG IM, NOT 2 MG .
[2021-09-18] MEDS ORDERED: diphenhydrAMINE HCL 50 MG/ML VIAL IM ONE (10:00)
[2021-09-18] MEDS ORDERED: HALOPERIDOL LACTATE INJ 5 MG/ML VIAL IM ONE (10:00)
[2021-09-18] MEDS ORDERED: LORAZEPAM INJ 2 MG/ML VIAL IM ONE (10:00)
--- NOTE | 2021-09-18 11:31 | NUR ---
RN-CO: BLOOD SUGAR 115 , NO COVERAGE. PT IS AWAKE BUT DROWSY, NO S/S OF DISTRESS NOTED. RESPIRATION EVEN AN DUNLABORED, SKIN IS WARM AND DRY TO TOUCH.
[2021-09-18 16:00] VITALS: BP_SYST 105; BP_SYST 106; BP_DIAS 59; BP_DIAS 66
[2021-09-18] MEDS: TAMSULOSIN 0.4 MG CAP.SR.24H PO SCH (17:14)
[2021-09-18 20:00] VITALS: BP 149/86
[2021-09-18] MEDS: QUETIAPINE FUMARATE 25 MG TABLET PO PRN ×2 (21:41→21:48)
[2021-09-18] MEDS: ATORVASTATIN 10 MG TABLET PO SCH (21:41)
[2021-09-18] MEDS: QUETIAPINE FUMARATE 100 MG TABLET PO SCH (21:51)
[2021-09-19] MEDS: ALBUTEROL FS 2.5 MG/3 ML VIAL.NEB NEB SCH ×4 (01:30→19:30)
[2021-09-19] MEDS: LORAZEPAM 0.5 MG TABLET PO PRN ×3 (02:50→19:51)
[2021-09-19] MEDS: IBUPROFEN 600 MG TABLET PO PRN ×2 (04:55→14:45)
--- NOTE | 2021-09-19 06:33 | NUR ---
RN GPS NOTE: Patient was offered Restoril, but refused. Patient then continued to be verbally abusive towards staff. PRN Ativan was given to patient due to being agitated. Then given PRN Motrin at 0455 for complaining of back pain.
[2021-09-19] MEDS: BLOOD SUGAR DIAGNOSTIC 1 EACH STRIP IN SCH ×4 (06:35→22:00)
[2021-09-19] MEDS: PANTOPRAZOLE 40 MG TABLET.DR PO SCH (06:35)
[2021-09-19] MEDS: BUDESONIDE RESPULE INH 0.5 MG/2 ML AMPUL.NEB NEB SCH ×2 (07:05→14:42)
--- NOTE | 2021-09-19 07:30 | NUR ---
Beginning of shift Report: Patient screaming, agitated, combative in his room, no follow directions, 1:1 verbal interaction not successful , continue to monitor.
[2021-09-19 08:00] VITALS: BP 145/78
[2021-09-19] MEDS: TRAMADOL HCL 50 MG TABLET PO SCH ×2 (08:10→17:15)
[2021-09-19] MEDS: GABAPENTIN 300 MG CAPSULE PO SCH ×3 (08:10→17:14)
[2021-09-19] MEDS: FERROUS SULFATE (325 MG) 325 MG/TAB TABLET PO SCH (08:11)
[2021-09-19] MEDS: DIVALPROEX SODIUM 500 MG TABLET.DR PO SCH ×2 (08:11→21:05)
[2021-09-19] MEDS: METFORMIN 500 MG TABLET PO SCH ×2 (08:11→17:13)
[2021-09-19] MEDS: ASPIRIN 81 MG TAB.CHEW PO SCH (08:11)
[2021-09-19] MEDS: HALOPERIDOL 5 MG TABLET PO SCH ×3 (08:11→17:13)
--- NOTE | 2021-09-19 08:11 | NUR ---
Patient continues screaming, agitated, verbally abusive towards staff. Po PRN Ativan given with morning medications. Will continue to monitor.
[2021-09-19] MEDS: CARVEDILOL 6.25 MG TABLET PO SCH ×2 (08:19→17:14)
[2021-09-19] MEDS: Z GUARD REMEDY 4 OZ OINT TP SCH ×2 (08:21→17:41)
--- NOTE | 2021-09-19 08:37 | NUR ---
Conservator: NICO contacted public guardian's office, spoke with Isai Moore caser up at 8:42AM and he stated that Marcelina the conservator [phone], is aware and agreeable of pt discharging to [facility] when ready. NICO requested a call from Marcelina if possible.
--- NOTE | 2021-09-19 08:53 | NUR ---
Conservator: SW contacted public guardian's office, spoke with Marcelina's conservator [phone], she is agreeable of pt discharging to [facility] when pt is stable.
[2021-09-19] MEDS ORDERED: OLANZAPINE 10 MG VIAL IM STA (10:52)
--- NOTE | 2021-09-19 11:07 | NUR ---
Patient yelling and screaming agitated and uncooperative ,not following directions , notified with new order Ativan 2mg IM ,Haldol 5mg IM,Cogentin 1mg IM .Patient voluntarily accept injection ,no physical hold Addendum: 09/19/21 at 1239 by PEDRO MCDOWELL only Zyprexa 5mg IM given.
--- NOTE | 2021-09-19 11:07 | NUR ---
Patient angry, screaming,agitated, combative, trying to get out chair, gait is unsteady, FWW given, patient still combative, Dr aware, IM Zyprexa given as ordered my doctor. will continue to monitor.
[2021-09-19] MEDS: QUETIAPINE FUMARATE 25 MG TABLET PO SCH ×2 (14:45→17:13)
--- NOTE | 2021-09-19 15:58 | NUR ---
NICO Individual Therapy: SW met with patient at bedside for individual therapy regarding positive coping mechanisms. Pt. is irritable and refused to engage in therapy. SW respected pt.'s self-determination and SW will continue attempts to engage pt. in therapy.
[2021-09-19 16:00] VITALS: BP 137/65
[2021-09-19] MEDS: INSULIN REGULAR, HUMAN 100 UNIT/ML 3 ML VIAL SQ PRN (17:18)
[2021-09-19] MEDS: TAMSULOSIN 0.4 MG CAP.SR.24H PO SCH (18:08)
--- NOTE | 2021-09-19 18:11 | NUR ---
Angry, irritable mood, verbally abusive, "you stupid bitch, fuck you!!", patient needs constant verbally redirections,all medications given and PRNS for agitation, Psychiatrist aware of patients behavior, ambulates with FWW with unsteady gait, poor insight for safety and current patient mental and physical status, needs to be watch closely by staff. Will continue to monitor.
--- NOTE | 2021-09-19 19:53 | NUR ---
RN NOTES: ANXIETY PT. VERY ANXIOUS SCREAMING YELLING , NONREDIRECTABLE , ATIVAN 0.5 MG PO GIVEN FOR PT. BEHAVIOR , WILL CONTINUE T0 MONITOR.
[2021-09-19 19:56] VITALS: BP 118/72
--- NOTE | 2021-09-19 20:15 | NUR ---
RN NOTES: REFUSED SKIN ASSESSMENT PT REFUSE SKIN ASSESSMENT , PT. BEHAVIOR UNCOOERTIVE , ANXIOUS , AT THIS TIME , PER PT. MY SKIN IS FINE NO NEED TO CHECK . WILL CONTINUTY WITH CARE.
[2021-09-19] MEDS ORDERED: QUETIAPINE FUMARATE 100 MG TABLET PO SCH (22:00)
[2021-09-19] MEDS: ATORVASTATIN 10 MG TABLET PO SCH (22:16)
--- NOTE | 2021-09-19 22:18 | NUR ---
RN NOTES: REFUSED SKIN ASSESSMENT PT REFUSED ACCU CHECK , ENCOURAGED STRONGLY REFUSED ,WILL CONTINUTY WITH CARE.
--- NOTE | 2021-09-19 22:30 | NUR ---
RN NOTES: REFUSED ACCU CHECK PT REFUSED ACCU CHECK , ENCOURAGED STRONGLY REFUSED ,WILL CONTINUTY WITH CARE.
[2021-09-20] MEDS: ALBUTEROL FS 2.5 MG/3 ML VIAL.NEB NEB SCH ×4 (01:21→19:30)
[2021-09-20] MEDS: TEMAZEPAM 7.5 MG CAPSULE PO PRN ×2 (01:50→21:26)
[2021-09-20] MEDS: LORAZEPAM 0.5 MG TABLET PO PRN ×3 (05:31→20:57)
--- NOTE | 2021-09-20 05:36 | NUR ---
RN NOTES: ANXIETY PT. VERY ANXIOUS ,RESTLESS,SCREAMING YELLING , NONREDIRECTABLE , ATIVAN 0.5 MG PO GIVEN FOR PT. BEHAVIOR , WILL CONTINUE TO MONITOR.
[2021-09-20] MEDS: BUDESONIDE RESPULE INH 0.5 MG/2 ML AMPUL.NEB NEB SCH ×2 (07:05→14:03)
[2021-09-20] MEDS: BLOOD SUGAR DIAGNOSTIC 1 EACH STRIP IN SCH ×5 (07:30→21:00)
[2021-09-20 08:00] VITALS: BP 115/69
[2021-09-20] MEDS: HALOPERIDOL 5 MG TABLET PO SCH ×3 (08:25→17:11)
[2021-09-20] MEDS: QUETIAPINE FUMARATE 25 MG TABLET PO SCH ×4 (08:26→21:00)
[2021-09-20] MEDS: TRAMADOL HCL 50 MG TABLET PO SCH ×2 (08:26→17:12)
[2021-09-20] MEDS: PANTOPRAZOLE 40 MG TABLET.DR PO SCH (08:26)
[2021-09-20] MEDS: DIVALPROEX SODIUM 500 MG TABLET.DR PO SCH ×2 (08:26→20:57)
[2021-09-20] MEDS: GABAPENTIN 300 MG CAPSULE PO SCH ×3 (08:27→17:16)
[2021-09-20] MEDS: CARVEDILOL 6.25 MG TABLET PO SCH ×2 (08:36→17:13)
[2021-09-20] MEDS: ASPIRIN 81 MG TAB.CHEW PO SCH (08:36)
[2021-09-20] MEDS: Z GUARD REMEDY 4 OZ OINT TP SCH ×2 (08:38→17:17)
[2021-09-20] MEDS: METFORMIN 500 MG TABLET PO SCH ×2 (08:38→17:00)
[2021-09-20] MEDS: FERROUS SULFATE (325 MG) 325 MG/TAB TABLET PO SCH (08:38)
--- NOTE | 2021-09-20 09:00 | NUR ---
call out to lawrence green regarding pt. behavior,md to be in to see pt. to evaluate.
--- NOTE | 2021-09-20 09:30 | NUR ---
med compliant with encouragement,yelling out from time to time then extremely groggy.
--- NOTE | 2021-09-20 10:38 | NUR ---
WOUND CARE CONSULT: UNABLE TO DO SKIN ASSESSMENT DUE TO PT UNCOOPERATIVE AND AGITATED. REVIEWED CHART, NURSING DOCUMENTATION AND PHOTOS WHICH INDICATE RASHES PRESENT ON ADMISSION TO SKIN FOLDS. RECOMMENDATIONS MADE FOR SKIN PROTECTION. DISCUSSED WITH NURSING STAFF. MD IN AGREEMENT WITH PLAN OF CARE. CURRENT ADRIÁN SCORE IS 17.
[2021-09-20] MEDS: IBUPROFEN 600 MG TABLET PO PRN (13:39)
--- NOTE | 2021-09-20 13:46 | NUR ---
given ativan and motrin for leg pain and agitation.
--- NOTE | 2021-09-20 15:22 | NUR ---
BACK AND FORTH BETWEEN BED AND AVA CHAIR.DR. COOPER IN EARLIER.
[2021-09-20 16:00] VITALS: BP 135/90
[2021-09-20] MEDS: TAMSULOSIN 0.4 MG CAP.SR.24H PO SCH (17:11)
[2021-09-20] MEDS: CLOTRIMAZOLE 1% 15 GM TUBE TP SCH (17:17)
[2021-09-20 20:32] VITALS: BP 103/73
[2021-09-20] MEDS: ATORVASTATIN 10 MG TABLET PO SCH (20:57)
[2021-09-20] MEDS ORDERED: QUETIAPINE FUMARATE 100 MG TABLET PO SCH (22:00)
[2021-09-21] MEDS: ALBUTEROL FS 2.5 MG/3 ML VIAL.NEB NEB SCH ×4 (01:30→19:30)
[2021-09-21] MEDS: BLOOD SUGAR DIAGNOSTIC 1 EACH STRIP IN SCH ×4 (07:30→22:10)
[2021-09-21 08:00] VITALS: BP 129/90
[2021-09-21] MEDS: DIVALPROEX SODIUM 500 MG TABLET.DR PO SCH ×2 (08:00→22:10)
[2021-09-21] MEDS: HALOPERIDOL 5 MG TABLET PO SCH ×3 (08:00→16:58)
[2021-09-21] MEDS: INSULIN REGULAR, HUMAN 100 UNIT/ML 3 ML VIAL SQ PRN ×2 (08:00→17:00)
[2021-09-21] MEDS: BUDESONIDE RESPULE INH 0.5 MG/2 ML AMPUL.NEB NEB SCH (08:20)
[2021-09-21] MEDS: Z GUARD REMEDY 4 OZ OINT TP SCH ×2 (09:00→17:00)
[2021-09-21] MEDS: CLOTRIMAZOLE 1% 15 GM TUBE TP SCH ×2 (09:00→17:00)
[2021-09-21] MEDS: LORAZEPAM 0.5 MG TABLET PO PRN (09:18)
[2021-09-21] MEDS: PANTOPRAZOLE 40 MG TABLET.DR PO SCH (09:19)
[2021-09-21] MEDS: METFORMIN 500 MG TABLET PO SCH ×2 (09:29→16:58)
[2021-09-21] MEDS: GABAPENTIN 300 MG CAPSULE PO SCH ×3 (09:29→16:58)
[2021-09-21] MEDS: CARVEDILOL 6.25 MG TABLET PO SCH ×2 (09:30→17:00)
[2021-09-21] MEDS: FERROUS SULFATE (325 MG) 325 MG/TAB TABLET PO SCH (09:30)
[2021-09-21] MEDS: TRAMADOL HCL 50 MG TABLET PO SCH ×2 (09:30→16:58)
[2021-09-21] MEDS: ASPIRIN 81 MG TAB.CHEW PO SCH (09:32)
[2021-09-21] MEDS: QUETIAPINE FUMARATE 25 MG TABLET PO SCH ×2 (12:38→16:59)
[2021-09-21 16:00] VITALS: BP 116/74
[2021-09-21] MEDS: TAMSULOSIN 0.4 MG CAP.SR.24H PO SCH (17:01)
[2021-09-21 20:12] VITALS: BP 116/73
[2021-09-21] MEDS: QUETIAPINE FUMARATE 100 MG TABLET PO SCH (22:09)
[2021-09-21] MEDS: ATORVASTATIN 10 MG TABLET PO SCH (22:09)
[2021-09-21] MEDS: TEMAZEPAM 7.5 MG CAPSULE PO PRN (22:09)
[2021-09-22] MEDS: ALBUTEROL FS 2.5 MG/3 ML VIAL.NEB NEB SCH ×4 (01:30→21:00)
[2021-09-22 08:00] VITALS: BP 99/65
[2021-09-22] MEDS: BLOOD SUGAR DIAGNOSTIC 1 EACH STRIP IN SCH ×4 (08:05→22:02)
[2021-09-22] MEDS: ASPIRIN 81 MG TAB.CHEW PO SCH (08:06)
[2021-09-22] MEDS: PANTOPRAZOLE 40 MG TABLET.DR PO SCH (08:06)
[2021-09-22] MEDS: HALOPERIDOL 5 MG TABLET PO SCH ×3 (08:06→16:12)
[2021-09-22] MEDS: GABAPENTIN 300 MG CAPSULE PO SCH ×3 (08:06→16:12)
[2021-09-22] MEDS: FERROUS SULFATE (325 MG) 325 MG/TAB TABLET PO SCH (08:06)
[2021-09-22] MEDS: METFORMIN 500 MG TABLET PO SCH ×2 (08:06→16:12)
[2021-09-22] MEDS: DIVALPROEX SODIUM 500 MG TABLET.DR PO SCH ×2 (08:07→21:53)
[2021-09-22] MEDS: TRAMADOL HCL 50 MG TABLET PO SCH ×2 (08:08→16:12)
[2021-09-22] MEDS: QUETIAPINE FUMARATE 25 MG TABLET PO SCH ×3 (08:08→16:12)
[2021-09-22] MEDS: CARVEDILOL 6.25 MG TABLET PO SCH ×2 (08:09→16:11)
--- NOTE | 2021-09-22 08:10 | NUR ---
BS 142- refused Humulin R stating he is taking Glucophage. Will continue to monitor.
[2021-09-22] MEDS: BUDESONIDE RESPULE INH 0.5 MG/2 ML AMPUL.NEB NEB SCH ×2 (08:47→14:36)
[2021-09-22] MEDS: Z GUARD REMEDY 4 OZ OINT TP SCH ×2 (09:35→16:52)
[2021-09-22] MEDS: CLOTRIMAZOLE 1% 15 GM TUBE TP SCH ×2 (09:36→16:52)
--- NOTE | 2021-09-22 11:44 | NUR ---
BS is 159, refused for 2 units Humulin R and said he is only getting Glucophage not insulin. Was explained on the importance and still refusing.
[2021-09-22 16:00] VITALS: BP 99/71
--- NOTE | 2021-09-22 16:49 | NUR ---
BS is 142, refused for 2 units of Humulin R and said he is only getting Glucophage not insulin. Was explained on the importance and still refusing.
[2021-09-22] MEDS: TAMSULOSIN 0.4 MG CAP.SR.24H PO SCH (18:40)
--- NOTE | 2021-09-22 19:15 | NUR ---
gps track vehicle repairer opening notes: received pt in bed, sleeping, calm. no acute distress noted. on room air, breathing even and unlabored. safety measures in place. will continue monitoring q15 mins for safety with the help of staff.
[2021-09-22] MEDS: ATORVASTATIN 10 MG TABLET PO SCH (21:52)
[2021-09-22] MEDS: QUETIAPINE FUMARATE 100 MG TABLET PO SCH (21:52)
[2021-09-23] MEDS: ALBUTEROL FS 2.5 MG/3 ML VIAL.NEB NEB SCH ×4 (01:30→19:30)
[2021-09-23] MEDS: ACETAMINOPHEN 325 MG TABLET PO PRN (02:34)
[2021-09-23] MEDS: BUDESONIDE RESPULE INH 0.5 MG/2 ML AMPUL.NEB NEB SCH ×2 (07:05→15:00)
[2021-09-23] MEDS: BLOOD SUGAR DIAGNOSTIC 1 EACH STRIP IN SCH ×4 (07:54→22:28)
[2021-09-23 08:00] VITALS: BP 136/71
[2021-09-23] MEDS: DIVALPROEX SODIUM 500 MG TABLET.DR PO SCH ×2 (08:14→20:35)
[2021-09-23] MEDS: GABAPENTIN 300 MG CAPSULE PO SCH ×3 (08:14→17:14)
[2021-09-23] MEDS: HALOPERIDOL 5 MG TABLET PO SCH ×3 (08:14→17:14)
[2021-09-23] MEDS: ASPIRIN 81 MG TAB.CHEW PO SCH (08:14)
[2021-09-23] MEDS: QUETIAPINE FUMARATE 25 MG TABLET PO SCH ×3 (08:14→17:13)
[2021-09-23] MEDS: FERROUS SULFATE (325 MG) 325 MG/TAB TABLET PO SCH (08:15)
[2021-09-23] MEDS: METFORMIN 500 MG TABLET PO SCH ×2 (08:15→17:13)
[2021-09-23] MEDS: PANTOPRAZOLE 40 MG TABLET.DR PO SCH (08:15)
[2021-09-23] MEDS: TRAMADOL HCL 50 MG TABLET PO SCH ×2 (08:15→17:14)
[2021-09-23] MEDS: CARVEDILOL 6.25 MG TABLET PO SCH ×2 (08:16→17:17)
[2021-09-23] MEDS: Z GUARD REMEDY 4 OZ OINT TP SCH ×2 (09:22→17:38)
[2021-09-23] MEDS: CLOTRIMAZOLE 1% 15 GM TUBE TP SCH ×2 (09:22→17:39)
[2021-09-23] MEDS: LORAZEPAM 0.5 MG TABLET PO PRN (09:35)
--- NOTE | 2021-09-23 09:36 | NUR ---
RN-NOTES NOTED PATIENT SCREAMING AND YELLING AT THE STAFF USING FOUL LANGUAGES ,THREATENING THE STAFF AND HITTING HIS ROOM WINDOW WITH THE WALKER . STATED" I'M GOING TO FALL AND BREAK MY NECK AND I WILL RICHARD YOU ALL AND THE HOSPITAL". REDIRECTED AND OFFERED ATIVAN 0.5MG P.O PRN ORDER. WILL CONT. MONITORING FOR SAFETY AND BEHAVIOR.
--- NOTE | 2021-09-23 10:35 | NUR ---
RN-NOTES PATIENT LYING IN BED AWAKE,ALERT,CALM NO ACUTE DISTRESS NOTED.
[2021-09-23 16:00] VITALS: BP 115/69
[2021-09-23] MEDS: TAMSULOSIN 0.4 MG CAP.SR.24H PO SCH (17:13)
--- NOTE | 2021-09-23 19:48 | NUR ---
RT Patient awake lying in bed. Refused kandy tx. Notified RN.
[2021-09-23 20:15] VITALS: BP_SYST 119; BP_DIAS 57; BP_DIAS 63
[2021-09-23] MEDS: ATORVASTATIN 10 MG TABLET PO SCH (21:20)
[2021-09-23] MEDS: QUETIAPINE FUMARATE 100 MG TABLET PO SCH (21:20)
[2021-09-23] MEDS: INSULIN REGULAR, HUMAN 100 UNIT/ML 3 ML VIAL SQ PRN (22:29)
[2021-09-24] MEDS: ALBUTEROL FS 2.5 MG/3 ML VIAL.NEB NEB SCH ×4 (02:30→19:50)
[2021-09-24] MEDS: BUDESONIDE RESPULE INH 0.5 MG/2 ML AMPUL.NEB NEB SCH ×2 (07:05→15:00)
[2021-09-24] MEDS: BLOOD SUGAR DIAGNOSTIC 1 EACH STRIP IN SCH ×4 (07:30→21:55)
[2021-09-24 07:50] LABS: WHITE BLOOD COUNT (AUTO) 4.1 K/uL (4.3-11.0)
[2021-09-24 07:51] LABS: BASOPHILS % (AUTO) 0.2 % (0.0-2.0); HEMATOCRIT 33 % (39-51); LYMPHOCYTES # (AUTO) 1.7 K/uL (0.8-4.8); LYMPHOCYTES % (AUTO) 42.4 % (20.0-44.0); MEAN CORPUSCULAR HGB CONC 33 g/dl (31.0-36.0); MEAN CORPUSCULAR VOLUME 92 fL (80-96); MONOCYTES # (AUTO) 0.4 K/uL (0.1-1.30); MONOCYTES % (AUTO) 10.4 % (2.0-12.0); NEUTROPHILS # (AUTO) 1.8 K/uL (1.8-8.9); PLATELET COUNT (AUTO) 202 K/uL (150-450); RED BLOOD CELL COUNT(AUTO) 3.63 MIL/uL (4.5-6.0)
[2021-09-24 08:00] VITALS: BP 138/62
--- NOTE | 2021-09-24 08:30 | NUR ---
REFUSED AM BGL.
[2021-09-24] MEDS: METFORMIN 500 MG TABLET PO SCH ×2 (09:00→17:00)
[2021-09-24] MEDS: GABAPENTIN 300 MG CAPSULE PO SCH ×3 (09:54→17:16)
[2021-09-24] MEDS: HALOPERIDOL 5 MG TABLET PO SCH ×3 (09:55→17:15)
[2021-09-24] MEDS: CARVEDILOL 6.25 MG TABLET PO SCH ×2 (09:55→17:17)
[2021-09-24] MEDS: ASPIRIN 81 MG TAB.CHEW PO SCH (09:55)
[2021-09-24] MEDS: FERROUS SULFATE (325 MG) 325 MG/TAB TABLET PO SCH (09:57)
[2021-09-24] MEDS: QUETIAPINE FUMARATE 25 MG TABLET PO SCH ×3 (10:02→17:15)
[2021-09-24] MEDS: DIVALPROEX SODIUM 500 MG TABLET.DR PO SCH ×2 (10:03→21:47)
[2021-09-24] MEDS: TRAMADOL HCL 50 MG TABLET PO SCH ×2 (10:04→17:16)
[2021-09-24] MEDS: PANTOPRAZOLE 40 MG TABLET.DR PO SCH (10:07)
[2021-09-24] MEDS: CLOTRIMAZOLE 1% 15 GM TUBE TP SCH ×2 (10:43→17:19)
[2021-09-24] MEDS: Z GUARD REMEDY 4 OZ OINT TP SCH ×2 (10:43→17:19)
[2021-09-24] MEDS ORDERED: LORAZEPAM INJ 2 MG/ML VIAL IM ONE (11:00)
[2021-09-24] MEDS ORDERED: diphenhydrAMINE HCL 50 MG/ML VIAL IM ONE (11:00)
[2021-09-24] MEDS: LORAZEPAM 0.5 MG TABLET PO PRN (11:49)
--- NOTE | 2021-09-24 11:49 | NUR ---
GIVEN ATIVAN FOR SEVERE AGITATION.
--- NOTE | 2021-09-24 12:00 | NUR ---
REFUSED NOON BGL.
[2021-09-24 12:41] LABS: CREATININE 0.8 mg/dL (0.6-1.3); POTASSIUM 3.8 mmol/L (3.5-5.1)
[2021-09-24 13:29] LABS: ALBUMIN 2.6 g/dL (3.4-5.0); BILIRUBIN,TOTAL 0.2 mg/dL (0.2-1.0)
[2021-09-24 16:00] VITALS: BP 142/78
[2021-09-24] MEDS: TAMSULOSIN 0.4 MG CAP.SR.24H PO SCH (17:16)
--- NOTE | 2021-09-24 18:51 | NUR ---
YELLING OUT FROM TIME TO TIME,ATIVAN X1 ONLY.
--- NOTE | 2021-09-24 19:30 | NUR ---
GPS RN NOTE, RECEIVED PATIENT AWAKE AND IN BED, NO S/S OR COMPLAINTS OF PAIN AT THIS TIME. PATIENT IS DISPLAYING NO S/S OF APPARENT DISTRESS AT THIS TIME. PATIENT BREATHING IS UNLABORED WITH EQUAL RISE AND FALL OF THE CHEST. PATIENT IS ALERT AND ORIENTED X 1-2 ON ROOM AIR WITH A SPO2 99%. PATIENT IS COMPLIANT WITH MEDICATIONS, ANXIOUS, PARANOID, MANIPULATIVE, YELLING AT TIMES, MAKES NEEDS KNOWN, AND UNCOOPERATIVE. PATIENT DENIES SUICIDAL AND HOMICIDAL IDEATIONS AT THIS TIME. PATIENT ASSISTED WITH TURNING AND REPOSITIONING Q2HR AND PRN FOR COMFORT AND CIRCULATION. PATIENT HAS NO NEEDS AT THIS TIME. PATIENT EDUCATED ON THE USE OF THE CALL [place]ISH. PATIENT BED SIDE RAILS UP X 2 FOR SAFETY. PATIENT BED IS LOCKED, LOW, WITH BED ALARM ON. WILL CONTINUE TO MONITOR THIS PATIENT Q15 MINUTES WITH THE HELP OF STAFF TO MAINTAIN SAFETY.
[2021-09-24 20:12] VITALS: BP 118/64
[2021-09-24 20:40] LABS: TOTAL PROTEIN, SERUM 6.5 g/dL (6.4-8.2)
[2021-09-24] MEDS: QUETIAPINE FUMARATE 100 MG TABLET PO SCH (21:47)
[2021-09-24] MEDS: ATORVASTATIN 10 MG TABLET PO SCH (21:47)
--- NOTE | 2021-09-24 21:54 | NUR ---
GPS RN NOTE, PERFORMED ACCU CHECK ON PATIENT WITH A BLOOD SUGAR RESULT OF 116. GAVE 0 UNITS OF REGULAR INSULIN PER SLIDING SCALE. GAVE SNAKE AND MILK. WILL CONTINUE TO MONITOR THIS PATIENT WITH THE HELP OF STAFF.
[2021-09-25] MEDS: ALBUTEROL FS 2.5 MG/3 ML VIAL.NEB NEB SCH ×4 (00:57→19:30)
[2021-09-25] MEDS: BUDESONIDE RESPULE INH 0.5 MG/2 ML AMPUL.NEB NEB SCH ×2 (07:05→15:00)
[2021-09-25] MEDS: FERROUS SULFATE (325 MG) 325 MG/TAB TABLET PO SCH (07:43)
[2021-09-25] MEDS: PANTOPRAZOLE 40 MG TABLET.DR PO SCH (07:44)
[2021-09-25] MEDS: QUETIAPINE FUMARATE 25 MG TABLET PO SCH ×3 (07:44→16:21)
[2021-09-25] MEDS: METFORMIN 500 MG TABLET PO SCH ×2 (07:44→16:21)
[2021-09-25] MEDS: TRAMADOL HCL 50 MG TABLET PO SCH ×2 (07:44→16:23)
[2021-09-25] MEDS: HALOPERIDOL 5 MG TABLET PO SCH ×3 (07:45→16:23)
[2021-09-25] MEDS: DIVALPROEX SODIUM 500 MG TABLET.DR PO SCH ×2 (07:45→21:44)
[2021-09-25] MEDS: ASPIRIN 81 MG TAB.CHEW PO SCH (07:46)
[2021-09-25] MEDS: CARVEDILOL 6.25 MG TABLET PO SCH ×2 (07:47→16:25)
[2021-09-25] MEDS: BLOOD SUGAR DIAGNOSTIC 1 EACH STRIP IN SCH ×4 (07:59→21:44)
[2021-09-25 08:00] VITALS: BP 153/78
--- NOTE | 2021-09-25 08:00 | NUR ---
RN NOTE PATIENT WAS SEEN BANGING HIS HEAD ON THE WALL SAYING HE IS USELESS, HE WANTS TO . PATIENT PLACED ON GERIATRIC CHAIR FOR REORIENTATION AND SAFETY. ENCOURAGED TO WATCH TV FOR DIVERSION.
[2021-09-25] MEDS: LORAZEPAM 0.5 MG TABLET PO PRN (08:20)
[2021-09-25] MEDS: CLOTRIMAZOLE 1% 15 GM TUBE TP SCH ×2 (09:35→16:23)
[2021-09-25] MEDS: Z GUARD REMEDY 4 OZ OINT TP SCH ×2 (09:36→16:23)
[2021-09-25] MEDS: GABAPENTIN 300 MG CAPSULE PO SCH ×3 (11:08→16:21)
--- NOTE | 2021-09-25 11:56 | NUR ---
RN NOTE CHECKED PATIENT'S BLOOD SUGAR: 84. NO INSULIN GIVEN. WILL CONTINUE TO MONITOR PATIENT
[2021-09-25 16:00] VITALS: BP 118/77
--- NOTE | 2021-09-25 17:30 | NUR ---
RN NOTE PATIENT'S BLOOD SUGAR CHECKED: 156. PATIENT REFUSED FOR INSULIN COVERAGE.
[2021-09-25] MEDS: TAMSULOSIN 0.4 MG CAP.SR.24H PO SCH (17:31)
[2021-09-25 19:52] VITALS: BP 146/76
[2021-09-25] MEDS: QUETIAPINE FUMARATE 100 MG TABLET PO SCH (21:43)
[2021-09-25] MEDS: ATORVASTATIN 10 MG TABLET PO SCH (21:43)
[2021-09-25] MEDS: TEMAZEPAM 7.5 MG CAPSULE PO PRN (22:47)
--- NOTE | 2021-09-25 22:49 | NUR ---
GPS RN NOTES PATIENT REFUSING SKIN ASSESSMENT, PATIENT EDUCATED ON COMPLIANCE, PATIENT REFUSED; PATIENT VERBALIZED HE IS TRYING TO SLEEP AND TO, "PLEASE STOP BOTHERING ME." PATIENT AGITATED, CHARGE NURSE AWARE
[2021-09-26] MEDS: ALBUTEROL FS 2.5 MG/3 ML VIAL.NEB NEB SCH ×4 (00:41→19:30)
[2021-09-26] MEDS: LORAZEPAM 0.5 MG TABLET PO PRN ×3 (02:29→19:50)
--- NOTE | 2021-09-26 04:35 | NUR ---
GPS RN NOTES PATIENT COMPLIANT WITH MEDICATIONS BUT CONTINUES TO REFUSE HIS BREATHING TX, PATIENT EDUCATED ON IMPORTANCE OF MEDICATION AND COMPLIANCE THROUGHOUT HOSPITALIZATION WITH TREATMENT PLAN, PATIENT STILL REFUSING BREATHING TREATMENT; PATIENT HAS BEEN REFUSING FOR THE PAST COUPLE OF DAYS; CHARGE NURSE IS AWARE; WILL INFORM DAY SHIFT AND CONT TO MONITOR PATIENT PER GPS PROTOCOL
[2021-09-26] MEDS: BUDESONIDE RESPULE INH 0.5 MG/2 ML AMPUL.NEB NEB SCH ×2 (07:05→15:00)
[2021-09-26] MEDS: BLOOD SUGAR DIAGNOSTIC 1 EACH STRIP IN SCH ×4 (07:44→21:26)
[2021-09-26 08:00] VITALS: BP 128/90
[2021-09-26] MEDS: Z GUARD REMEDY 4 OZ OINT TP SCH ×2 (08:23→17:03)
[2021-09-26] MEDS: CLOTRIMAZOLE 1% 15 GM TUBE TP SCH ×2 (08:31→17:03)
[2021-09-26] MEDS: DIVALPROEX SODIUM 500 MG TABLET.DR PO SCH ×2 (08:32→20:51)
[2021-09-26] MEDS: QUETIAPINE FUMARATE 25 MG TABLET PO SCH ×2 (08:32→17:08)
[2021-09-26] MEDS: ASPIRIN 81 MG TAB.CHEW PO SCH (08:32)
[2021-09-26] MEDS: GABAPENTIN 300 MG CAPSULE PO SCH ×3 (08:33→17:08)
[2021-09-26] MEDS: METFORMIN 500 MG TABLET PO SCH ×2 (08:33→17:16)
[2021-09-26] MEDS: CARVEDILOL 6.25 MG TABLET PO SCH ×2 (08:33→17:08)
[2021-09-26] MEDS: FERROUS SULFATE (325 MG) 325 MG/TAB TABLET PO SCH (08:33)
[2021-09-26] MEDS: TRAMADOL HCL 50 MG TABLET PO SCH ×2 (08:34→17:09)
[2021-09-26] MEDS: PANTOPRAZOLE 40 MG TABLET.DR PO SCH (08:34)
[2021-09-26] MEDS: HALOPERIDOL 5 MG TABLET PO SCH ×3 (08:34→17:08)
--- NOTE | 2021-09-26 11:29 | NUR ---
ATIVAN 0.5MG GIVEN FOR ANXIETY. WILL CONTINUE TO MONITOR.
--- NOTE | 2021-09-26 11:49 | NUR ---
ACCU CHECK DONE WITH BS RESULT OF 189. PT REFUSES INSULIN. WILL CONTINUE TO MONITOR.
[2021-09-26] MEDS ORDERED: QUETIAPINE FUMARATE 25 MG TABLET PO SCH (13:00)
[2021-09-26 16:00] VITALS: BP 126/77
[2021-09-26] MEDS: TAMSULOSIN 0.4 MG CAP.SR.24H PO SCH (17:10)
--- NOTE | 2021-09-26 19:51 | NUR ---
RN NOTES: ANXIETY PT. VERY ANXIOUS ,RESTLESS,SCREAMING YELLING , NONREDIRECTABLE , ATIVAN 0.5 MG PO GIVEN FOR PT. BEHAVIOR , WILL CONTINUE TO MONITOR.
[2021-09-26 20:37] VITALS: BP 145/77
[2021-09-26] MEDS: QUETIAPINE FUMARATE 100 MG TABLET PO SCH (21:25)
[2021-09-26] MEDS: ATORVASTATIN 10 MG TABLET PO SCH (21:26)
[2021-09-26] MEDS: INSULIN REGULAR, HUMAN 100 UNIT/ML 3 ML VIAL SQ PRN (21:57)
[2021-09-26 22:00] VITALS: BP 123/65
--- NOTE | 2021-09-26 22:30 | NUR ---
RN NOTES: PT.ACCU CHECK DONE WITH BS RESULT OF 191. PT REFUSES INSULIN COVERAGE. PER PT. STATUS I AM TAKING METFORMIN ,I NO NEEDED TAKE INSULIN, ENCOURAGED RISKS AND BENEFITS EXPLINED, PT. STRONGLY REFUSED WILL CONTINUE TO MONITOR.
[2021-09-26] MEDS: TEMAZEPAM 7.5 MG CAPSULE PO PRN (23:09)
--- NOTE | 2021-09-26 23:14 | NUR ---
R NOTES: INSOMNIA PT. UNABLE TO SLEEP , RESTORIL 7.5 MG PO GIVEN , WILL CONTINUE TO MONITOR.
[2021-09-27] MEDS: ALBUTEROL FS 2.5 MG/3 ML VIAL.NEB NEB SCH ×3 (01:30→12:52)
--- NOTE | 2021-09-27 05:00 | NUR ---
RN NOTES: REFUSED SKIN ASSESSMENT PT REFUSED ACCU CHECK , ENCOURAGED STRONGLY REFUSED ,WILL CONTINUTY WITH CARE.
[2021-09-27] MEDS: LORAZEPAM 0.5 MG TABLET PO PRN (06:27)
--- NOTE | 2021-09-27 06:29 | NUR ---
RN NOTES: ANXIETY PT. VERY ANXIOUS ,RESTLESS,SCREAMING YELLING , NONREDIRECTABLE , ATIVAN 0.5 MG PO GIVEN FOR PT. BEHAVIOR , WILL CONTINUE TO MONITOR.
--- NOTE | 2021-09-27 06:50 | NUR ---
RN NOTES: COLLECT COVID ANTIGEN SPECIMEN AND SEND OUT TO LAB.
[2021-09-27] MEDS: BUDESONIDE RESPULE INH 0.5 MG/2 ML AMPUL.NEB NEB SCH (07:05)
[2021-09-27] MEDS: PANTOPRAZOLE 40 MG TABLET.DR PO SCH (07:06)
[2021-09-27] MEDS: BLOOD SUGAR DIAGNOSTIC 1 EACH STRIP IN SCH ×2 (07:09→11:58)
--- NOTE | 2021-09-27 07:55 | NUR ---
RT PT REFUSED NEB TX, RN INFORMED
[2021-09-27 08:00] VITALS: BP 153/90
--- NOTE | 2021-09-27 08:06 | NUR ---
SW Discharge Note: Patient will be discharged to [facility] located at [address] [place] [id number]; ([phone]). Please arrange ambulance transportation at 1Pm. Glenis miller from [facility] accepted pt and is welcoming pt today. Pts conservator Marcelina ([phone]) is aware and agreeable with dc. Pt appears to be alert and oriented x2 and is willing to go to the nursing facility. Pt denies visual/auditory hallucinations. Pt denies denies suicidal or homicidal ideation. Patient will continue to follow-up with (psychiatrist) Dr. Clarke [address] [facility] [address], [place] [address]; ([phone]) and (utility bill complaints investigator) Dr. Vera [address] [facility] [address], [place] [address]; ([phone]). Pt presented with euthymic mood and congruent affect.
[2021-09-27] MEDS: Z GUARD REMEDY 4 OZ OINT TP SCH (08:13)
[2021-09-27] MEDS: CLOTRIMAZOLE 1% 15 GM TUBE TP SCH (08:13)
[2021-09-27] MEDS: METFORMIN 500 MG TABLET PO SCH (08:18)
[2021-09-27] MEDS: GABAPENTIN 300 MG CAPSULE PO SCH ×2 (08:18→12:37)
[2021-09-27 08:19] VITALS: BP 153/90
[2021-09-27] MEDS: DIVALPROEX SODIUM 500 MG TABLET.DR PO SCH (08:19)
[2021-09-27] MEDS: ASPIRIN 81 MG TAB.CHEW PO SCH (08:19)
[2021-09-27] MEDS: HALOPERIDOL 5 MG TABLET PO SCH ×2 (08:19→12:37)
[2021-09-27] MEDS: CARVEDILOL 6.25 MG TABLET PO SCH (08:19)
[2021-09-27] MEDS: TRAMADOL HCL 50 MG TABLET PO SCH (08:20)
[2021-09-27] MEDS: FERROUS SULFATE (325 MG) 325 MG/TAB TABLET PO SCH (08:20)
[2021-09-27] MEDS: QUETIAPINE FUMARATE 25 MG TABLET PO SCH ×2 (08:20→12:37)
--- NOTE | 2021-09-27 14:11 | NUR ---
Patient has been discharged to [facility] located at [address] [place] [id number]; ([phone]). Ambulance transportation picked up pt @ 1350. Glenis miller from [facility] accepted pt and is welcoming pt today. Pts conservator Marcelina ([phone]) is aware and agreeable with dc. Pt appears to be alert and oriented x2 and is willing to go to the nursing facility. Pt denies visual/auditory hallucinations. Pt denies denies suicidal or homicidal ideation. Patient will continue to follow-up with (psychiatrist) Dr. Clarke [address] [facility] [address], [place] [address]; ([phone]) and (perinatal educator) Dr. Vera [address] [facility] [address], [place] [address]; ([phone]). Report called and taken by Maryan [place]. Exit Care packet with medication list, education, instructions for after care, and pertinent signed discharge documentation given to transport team. All valuables and belongings signed and returned. Pt refused pictures.
== END 2021-09-27 13:50 | DRG 885 ==
LOC: GPS 11:14
PROVIDERS: ADMIT Psychiatry & Neurology Psychosomatic Medicine; ATTEND Internal Medicine
DX: F25.0 Schizoaffective disorder, bipolar type (principal); R45.851 Suicidal ideations; F29 Unspecified psychosis not due to a substance or known physiological condition; E11.9 Type 2 diabetes mellitus without complications; E78.5 Hyperlipidemia, unspecified; I10 Essential (primary) hypertension; J44.9 Chronic obstructive pulmonary disease, unspecified; Z73.6 Limitation of activities due to disability; Z68.38 Body mass index [BMI] 38.0-38.9, adult; G31.84 Mild cognitive impairment of uncertain or unknown etiology; Z79.84 Long term (current) use of oral hypoglycemic drugs; E66.01 Morbid (severe) obesity due to excess calories; Z20.822 Contact with and (suspected) exposure to COVID-19
CPT/HCPCS: 36415; 80053-TC; 80061-TC; 80164-TC; 82962-TC; 83735-TC; 84100-TC; 85025-TC; 87081-TC; 94799-TC; 97116-TC; 97530-TC; J0515; J1200; J1630; J1815; J2060; J3490